=== PATIENT | female | born 1995 | race Caucasian/White ===

== ENCOUNTER 2023-12-14 08:18 | Emergency (ER) | payer OTHER ==
[~2023-12-14] VITALS: Ht 165.1 cm; Wt 54.4 kg
[2023-12-14] MEDS ORDERED: ACETAMINOPHEN 500 MG TABLET ONE (09:32)
[2023-12-14] MEDS: ACETAMINOPHEN 500 MG TABLET PO ONE (09:36)
[2023-12-14 10:35] LABS: *BILIRUBIN,URIN NEGATIVE (NEGATIVE); *BLOOD, URINE NEGATIVE (NEGATIVE); *CLARITY,URINE CLEAR (CLEAR); *COLOR,URINE YELLOW (YELLOW); *KETONES,URINE 1+ (NEGATIVE); *PROTEIN,URINE 2+ (NEGATIVE); *UROBILINOGEN,URINE 0.2 E.U./dl (NORMAL); LEUKOCYTE ESTERASE ,URINE NEGATIVE (NEGATIVE); NITRITE, URINE NEGATIVE (NEGATIVE); UGLUCOSE NEGATIVE (NEGATIVE)
[2023-12-14 10:38] LABS: *URINE HCG, QUAL NEGATIVE (NEGATIVE)
[2023-12-14 10:59] VITALS: BP 114/80; O2SAT 96
[2023-12-14 11:10] LABS: BACTERIA,URINE FEW /HPF (NONE SEEN); RBC,URINE NONE SEEN /HPF (0-3); SQUAMOUS EPITHELIAL CELL,UR FEW /HPF (NONE SEEN); WBC,URINE 0-3 /HPF (0-3)
== END 2023-12-14 11:03 | disposition home or self-care (01) ==
LOC: ER 08:18
DX: S09.8XXA Other specified injuries of head, initial encounter (principal); S19.89XA Other specified injuries of other specified part of neck, initial encounter; R10.2 Pelvic and perineal pain; Y04.8XXA Assault by other bodily force, initial encounter; Y93.89 Activity, other specified; Y92.89 Other specified places as the place of occurrence of the external cause; Y99.8 Other external cause status
CPT/HCPCS: 70450; 72125; 84703; 98960; A4606; A4663; A9150